=== PATIENT | female | born 1970 | race Hispanic/Latino ===

== ENCOUNTER 2016-11-14 05:25 | Emergency (ER) | payer OTHER ==
[~2016-11-14] VITALS: Ht 149.9 cm; Wt 86.2 kg
[~2016-11-14 05:25] MED LIST: AUGMENTIN 875-1 EACH PO; BENADRYL ALLERG25 M2 PO; MEDROL DOSEPAK1 PAC PO; PEPCID20 M1 PO; PERCOCET 325 MG1 TA2 PO; PREDNISONE20 M1 PO; PREDNISONE50 M1 PO; PROMETHAZINE-C118 ML PO; PROVENTIL HFA6.7 GM INH; TESSALON PERLE100 M1 PO; THERAFLU EXP245.5 ML PO; VALIUM5 M1 PO
--- NOTE | 2016-11-14 06:01 | ED DYSPNEA/ASTHMA COMPLAINT ---
History of Present Illness General Chief Complaint: General Adult Stated Complaint: "COUGHING,CHEST CONGESTION,DIFF.BREATHING" Source: patient Exam Limitations: no limitations Vital Signs & Intake/Output Vital Signs & Intake/Output Vital Signs Date Time Temp Pulse Resp B/P Pulse O2 O2 Flow FiO2 Ox Delivery Rate 11/14 0536 93 16 132/78 98 Room Air Allergies Coded Allergies: NO KNOWN ALLERGIES (10/30/15) Reconcile Medications Albuterol Sulfate (Proventil Hfa) 90 MCG HFA.AER.AD 2 PUF INH Q4 wheeze Albuterol Sulfate (Ventolin Hfa) 90 MCG HFA.AER.AD 2 PUF INH Q4-6 PRN PRN WHEEZE, BRONCHITIS Amoxicillin/Potassium Clav (Augmentin 875-125 Tablet) 875 MG-125 MG TABLET 1 TAB PO BID bronchitis Benzonatate (Tessalon Perle) 100 MG CAPSULE 1-2 CAP PO TID PRN cough Benzonatate (Tessalon Perle) 100 MG CAPSULE 1-2 CAP PO TID PRN COUGH D-Methorphan/PE/Acetaminophen (Theraflu Expressmax Cold-Cough) (Unknown Strength ) LIQUID (Unknown Dose) PO AD COLD SYMPTOMS (Reported) Levofloxacin (Levaquin) 500 MG TABLET 1 TAB PO DAILY BRONCHITIS Prednisone 50 MG TABLET 1 TAB PO DAILY bronchitis Prednisone 50 MG TABLET 1 TAB PO DAILY BRONCHITIS Promethazine HCl/Codeine (Promethazine-Codeine Syrup) 6.25 MG-10 MG/5 ML SYRUP 5-10 ML PO Q4-6 PRN cough [id number]...one hundred twenty ml's Triage Note: PT TO ED FROM HOME C/O PRODUCTIVE COUGH, SOB, CP WITH COUGH, AND HEADACHE. PT REPORTS BEING ON AMOXICILLIN SINCE NOVEMBER 06 FOR BRRONCHITIS. PT DENIES FEVER AND CHILLS Triage Nurses Notes Reviewed? yes Onset: Gradual Duration: day(s): Timing: recent history Severity: moderate Activities at Onset: none Prior Episodes/Possible Cause: occasional episodes Modifying Factors: Improves With: rest. Associated Symptoms: cough, wheezing HPI: 45 yo woman h/o asthma, on amox x 7 days, presents with continued cough, with phlegm and wheeze. She notes, "I cough so much I throw up." She notes that she has no fever, chills, chest pain, diarrhea. She is otherwise well. Past History Travel History Traveled to [place] past 21 day No Medical History Any Pertinent Medical History? see below for history Neurological: NONE EENT: NONE Cardiovascular: NONE Respiratory: asthma Gastrointestinal: NONE Hepatic: NONE Renal: NONE Musculoskeletal: NONE Psychiatric: NONE Endocrine: NONE Blood Disorders: NONE Cancer(s): NONE SCIENTIFIC ARTIST/Reproductive: NONE Surgical History Surgical History: left hip, left knee, Psychosocial History What is your primary language Bulgarian Tobacco Use: Current Daily Use Daily Tobacco Use Amount/Type: =< 4 Cigarettes daily Family History Hx Contributory? No Review of Systems Review of Systems Constitutional: Reports: no symptoms. EENTM: Reports: no symptoms. Respiratory: Reports: no symptoms. Cardiovascular: Reports: no symptoms. GI: Reports: no symptoms. Genitourinary: Reports: no symptoms. Musculoskeletal: Reports: no symptoms. Skin: Reports: no symptoms. Neurological/Psychological: Reports: no symptoms. Hematologic/Endocrine: Reports: no symptoms. Immunologic/Allergic: Reports: no symptoms. All Other Systems: Reviewed and Negative Physical Exam Physical Exam General Appearance: well developed/nourished, mild distress Head: atraumatic, normal appearance Eyes: Bilateral: normal appearance. Ears, Nose, Throat: normal pharynx, normal ENT inspection Neck: normal inspection, supple, full range of motion Respiratory: normal breath sounds, rhonchi, symmetric breath sounds Cardiovascular: regular rate/rhythm Gastrointestinal: normal bowel sounds, soft, non-tender, no organomegaly Extremities: normal inspection, normal capillary refill, normal range of motion Neurologic/Psych: no motor/sensory deficits, awake, alert, oriented x 3 Skin: intact, normal color, warm/dry Core Measures ACS in differential dx? No Severe Sepsis Present: No Septic Shock Present: No Progress Differential Diagnosis: asthma, bronchitis Plan of Care: Current Medications Sig/Devon Start time Last Medication Dose Stop Time Status Admin Dexamethasone 8 MG ONCE ONE 11/14 614 UNVr (Decadron) 11/14 0516 Initial ED EKG: none Departure Departure Disposition: HOME OR SELF CARE Condition: Stable Clinical Impression Primary Impression: Bronchitis Referrals: PATIENT HAS NO PRIMARY CARE DR (PCP/Family) Departure Forms: Customer Survey General Discharge Information Prescriptions: Current Visit Scripts Albuterol Sulfate (Ventolin Hfa) 2 PUF INH Q4-6 PRN PRN WHEEZE, BRONCHITIS #1 INHAL Ref 2 Benzonatate (Tessalon Perle) 1-2 CAP PO TID PRN COUGH #30 CAP Levofloxacin (Levaquin) 1 TAB PO DAILY #10 TAB Prednisone 1 TAB PO DAILY #5 TAB Comments 11/14/16, 6:32am... pt feels better after neb... 02 sat 98%... pt safe for discharge... will expand her antibiotics and intensify her regimen with steroids. Pt safe for discharge. Critical Care Note Critical Care Note Critical Care Time: non-applicable
[2016-11-14] MEDS ORDERED: LEVAQUIN500 M1 PO ×2 (06:08→06:29)
[2016-11-14] MEDS ORDERED: TESSALON PERLE100 M1 PO ×2 (06:08→06:29)
[2016-11-14] MEDS ORDERED: VENTOLIN HFA18 GM INH ×2 (06:08→06:29)
[2016-11-14] MEDS ORDERED: PREDNISONE50 M1 PO ×2 (06:08→06:29)
[2016-11-14 06:41] VITALS: BP 124/78
== END 2016-11-14 06:42 ==
LOC: ERH 05:25
DX: J40 Bronchitis, not specified as acute or chronic (principal); Z72.0 Tobacco use
CPT/HCPCS: 1263

== ENCOUNTER 2016-11-28 21:09 | Emergency (ER) | payer OTHER ==
[~2016-11-28] VITALS: Ht 149.9 cm; Wt 86.2 kg
[~2016-11-28 21:09] MED LIST changes: +LEVAQUIN500 M1 PO; +VENTOLIN HFA18 GM INH
[2016-11-28 21:17] VITALS: BP 130/79
--- NOTE | 2016-11-28 21:29 | ED ANKLE/FOOT INJURY COMPLAINT ---
History of Present Illness General Chief Complaint: Foot or Ankle Injury Stated Complaint: LEFT FOOT BIG TOE PINCHED IN DOOR Source: patient, old records Exam Limitations: no limitations Vital Signs & Intake/Output Vital Signs & Intake/Output Vital Signs Date Time Temp Pulse Resp B/P Pulse O2 O2 Flow FiO2 Ox Delivery Rate 11/28 2116 98.2 96 18 130/79 97 Room Air Allergies Coded Allergies: NO KNOWN ALLERGIES (10/30/15) Reconcile Medications Albuterol Sulfate (Proventil Hfa) 90 MCG HFA.AER.AD 2 PUF INH Q4 wheeze Albuterol Sulfate (Ventolin Hfa) 90 MCG HFA.AER.AD 2 PUF INH Q4-6 PRN PRN WHEEZE, BRONCHITIS Amoxicillin/Potassium Clav (Augmentin 875-125 Tablet) 875 MG-125 MG TABLET 1 TAB PO BID bronchitis Benzonatate (Tessalon Perle) 100 MG CAPSULE 1-2 CAP PO TID PRN cough Benzonatate (Tessalon Perle) 100 MG CAPSULE 1-2 CAP PO TID PRN COUGH D-Methorphan/PE/Acetaminophen (Theraflu Expressmax Cold-Cough) (Unknown Strength ) LIQUID (Unknown Dose) PO AD COLD SYMPTOMS (Reported) Levofloxacin (Levaquin) 500 MG TABLET 1 TAB PO DAILY BRONCHITIS Prednisone 50 MG TABLET 1 TAB PO DAILY bronchitis Prednisone 50 MG TABLET 1 TAB PO DAILY BRONCHITIS Promethazine HCl/Codeine (Promethazine-Codeine Syrup) 6.25 MG-10 MG/5 ML SYRUP 5-10 ML PO Q4-6 PRN cough [id number]...one hundred twenty ml's Tylenol With Codeine (Tylenol With Codeine #3 Tablet) 300 MG-30 MG TABLET 1 TAB PO BIDP PRN PAIN Triage Note: PT TO ED C/O LEFT GREAT TOE PAIN S/P GETTING IT PINCHED IN A DOOR 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 SMALL BLOOD BLISTER TO TIP OF TOE, NEW BLUE AREA TO NAIL BED. THICK FUNGAL NAIL NOTED Triage Nurses Notes Reviewed? yes Occurred: just prior to arrival Duration: hour(s): (1), constant Timing: recent history Severity: moderate Severity Numbers: 5 Pain/Injury Location: Left: 1st toe. Method of Injury: direct blow Modifying Factors: Worsens With: other (PALPATION). Associated Symptoms: none HPI: 45-year-old female presents emergency room status post hanging her left first toe in a door that she accidentally closed on it just prior to arrival now presents complaining of aching throbbing pain to her big toe. She denies any other foot or toe pain. She took a Tylenol 3 prior to arrival for her pain. She denies any numbness or tingling there is no other injury she denies any difficulty with ambulation or weightbearing Past History Travel History Traveled to [place] past 21 day No Medical History Any Pertinent Medical History? see below for history Neurological: migraine EENT: NONE Cardiovascular: NONE Respiratory: asthma Gastrointestinal: NONE Hepatic: NONE Renal: NONE Musculoskeletal: NONE Psychiatric: NONE Endocrine: NONE Blood Disorders: NONE Cancer(s): NONE ADDICTION TREATMENT COUNSELOR/Reproductive: NONE Surgical History Surgical History: left hip, left knee, Psychosocial History What is your primary language Malaysian Tobacco Use: Current Daily Use Daily Tobacco Use Amount/Type: => 5 Cigarettes daily ETOH Use: occasional use Illicit Drug Use: denies illicit drug use Family History Hx Contributory? No Review of Systems Review of Systems Constitutional: Reports: see HPI. All Other Systems: Reviewed and Negative Comments Review of systems: See HPI, All other systems negative. Constitutional, no chills no fever, no malaise HEENT: No visual changes no sore throat no congestion Cardiovascular: No chest pain , no palpitation , Skin, no rashes, no change in skin Respiratory: No dyspnea no cough no sputum GI: No nausea no vomiting, no diarrhea : No dysuria Muscle skeletal: No joint pain, no back pain, no neck pain, Neurologic: No numbness no headache Psych: No stress Heme/endocrine: No bruising no bleeding Immunology: No lymphadenopathy Physical Exam Physical Exam General Appearance: well developed/nourished, no apparent distress, alert, awake Leg/Knee/Thigh Left: normal range of motion Comments: Well-developed well-nourished patient in no apparent distress. HEENT: Atraumatic, extraocular motion intact Neck: Supple, FROM, no lymphadenopathy Back: FROM, Nontender Cardiovascular: Regular rate and rhythms no murmurs Respiratory: No respiratory distress. Patient speaking in full complete sentences. Upper Extremities: full range of motion Hip/Pelvis: Atraumatic/Stable. FROM. Knee: Atraumatic/stable. FROM. No joint swelling, no effusion. No laxity. No pain with ROM Leg: Atraumatic. Nontender. No edema, 5 out of 5 strength in the lower extremity, normal dorsiflexion of great toe bilaterally, gross sensation is intact, Ankle/Foot: There is a small blood filled blister noted to the distal aspect of the left first toe , NO SUBUNGAL HEMATOMA, CAP REFILL WNL, FROM OF TOE, FOOT IS ATRAUMATIC NONTENDER, stable. Skin intact. FROM. No swelling, no effusion. No laxity on exam Pulses: Normal/equal DP/PT pulses bilaterally. Brisk cap refill Neuro: Alert and oriented x3 Skin: Warm & dry;No appreciable rash on exposed skin Psych: Mood affect normal, normal memory normal judgment. Progress Differential Diagnosis: fracture, dislocation, contusion, compartmental syndrome , SPRAIN Plan of Care: Orders Procedure Date/time Status XRY-TOES, LEFT 11/28 2139 Active X-ray ordered patient declining any finger pain when offered Discussed with patient her x-ray results need for supportive care toes dacia taped by nurse advise close follow-up with retirement village manager. She feels comfortable plan cleared for discharge (ASHLEY PRICE,[place]) Diagnostic Imaging: Viewed by Me: Radiology Read. Discussed w/RAD: Radiology Read. Radiology Impression: PATIENT: KATHY LUND PRESENT AGE : 45 PATIENT ACCOUNT NO: [id number] : 68 LOCATION: [facility] ORDERING PHYSICIAN: LUCI PRICE SERVICE DATE: 11/28/16 EXAM TYPE: RAD - XRY- TOES, LEFT EXAMINATION: XR TOE, LEFT CLINICAL INFORMATION: Left great toe pain, status post trauma COMPARISON: None. TECHNIQUE: AP view of the left foot, 2 views of the great toe FINDINGS: On the lateral view there is a lucency at the base of the distal phalanx of the great toe which is suspicious for a nondisplaced fracture. There may be extension to the articular surface. Otherwise, no demonstrated acute fracture subluxation involving the left foot. The remainder of the examination is unremarkable. IMPRESSION: Probable acute displaced fracture at the base and inferior aspect of the distal phalanx of the great toe of the left foot. DICTATED BY: BESS VERMA MD DATE/TIME DICTATED:2242 CALCULUS PROFESSOR:JAMEEL DATE/TIME TRANSCRIBED:11/28/162242 CONFIDENTIAL, DO NOT COPY WITHOUT APPROPRIATE AUTHORIZATION. <Electronically signed in Other Vendor System> SIGNED BY: BESS VERMA MD 11/28/16 225 Departure Departure Time of Disposition: 2239 Disposition: HOME OR SELF CARE Condition: Stable Clinical Impression Primary Impression: Toe fracture, left Referrals: ROYAL MOLINA DPM PATIENT HAS NO PRIMARY CARE DR (PCP/Family) Additional Instructions: Follow-up with retirement village manager Dr. Molina. Do not pop the blood blister. Tylenol Motrin every 4-6 hours ice packs as needed Departure Forms: Customer Survey General Discharge Information Prescriptions: Current Visit Scripts Tylenol With Codeine (Tylenol With Codeine #3 Tablet) 1 TAB PO BIDP PRN PAIN #10 TAB
--- NOTE | 2016-11-28 22:50 | RADIOLOGY REPORT ---
EXAMINATION: XR TOE, LEFT CLINICAL INFORMATION: Left great toe pain, status post trauma COMPARISON: None. TECHNIQUE: AP view of the left foot, 2 views of the great toe FINDINGS: On the lateral view there is a lucency at the base of the distal phalanx of the great toe which is suspicious for a nondisplaced fracture. There may be extension to the articular surface. Otherwise, no demonstrated acute fracture subluxation involving the left foot. The remainder of the examination is unremarkable. IMPRESSION: Probable acute displaced fracture at the base and inferior aspect of the distal phalanx of the great toe of the left foot.
[2016-11-28] MEDS ORDERED: TYLENOL WITH C1 EACH PO (23:01)
== END 2016-11-28 23:01 ==
LOC: ERH 21:09
DX: M79.675 Pain in left toe(s) (principal)
CPT/HCPCS: 73660-LT